=== PATIENT | female | born 1950 | race Caucasian/White ===

== ENCOUNTER 2018-01-28 08:23 | Inpatient (IN) ==
[~2018-01-28 08:23] MED LIST: Vancomycin 1,000 MG, Sodium Chloride IRRigation 1,000 ML IR ONE
[2018-01-28] MEDS ORDERED: *HR* FentaNYL (PF) 100 MCG/2 ML VIAL ONE ×2 (08:28→10:48)
[2018-01-28] MEDS ORDERED: *HR* Midazolam HCl 2 MG/2 ML VIAL ONE (08:28)
[2018-01-28] MEDS ORDERED: *HR* Propofol 200 MG/20 ML VIAL IVP ONE (08:28)
[2018-01-28] MEDS ORDERED: Lidocaine -MPF 2% 2 ML VIAL ONE (08:31)
[2018-01-28] MEDS ORDERED: *HR* Succinylcholine 200 MG/10 ML VIAL IVP ONE (08:31)
[2018-01-28] MEDS ORDERED: Lidocaine -MPF 1% 2 ML VIAL ID ONE (08:47)
[2018-01-28] MEDS ORDERED: CeFAZolin Syr 2,000MG/20 ML 2,000 MG/20 ML SYRINGE IVPB ONE (08:47)
[2018-01-28] MEDS ORDERED: Vancomycin 1,000 MG VIAL ONE (08:57)
[2018-01-28] MEDS ORDERED: Heparin 1,000 UNITS/500 mL 1,500 ML ONE (08:57)
--- NOTE | 2018-01-28 08:59 | Anesthesia Evaluation PreOp ---
Date of Encounter: 01/28/18 Time of Encounter: 08:58 - Past History Planned Operation: R femoral to popliteal artery bypass Cardiac History: Denies any Significant Hx, HTN, Hyperlipidemia, Other (PVD) Pulmonary History: Smoker [employer] History: Denies Any Significant HX Other Medical History: Renal (CKD stage 3), Thyroid Anesthesia History: No Prior Anesthetic Complications : No Alcohol Use: none Drug use: none Medications and Allergies 3 Allergy/AdvReac Type Severity Reaction Status Date / Time Penicillins Allergy See Verified 01/28/18 09:00 Comments - Meds/Allergy Pre-op Review Medications Reviewed: Yes Allergies Reviewed: Yes Beta Blockers on Current Med List: No Anesthesia Results - Labs Laboratory Tests 11/12/17 01/01/18 01/01/18 09:11 07:59 07:59 WBC Hgb Hct Plt Count PT 10.0 INR 0.9 APTT 32.7 Sodium 136 Potassium 4.5 Chloride 104 Carbon Dioxide 26 BUN 24 H Creatinine 1.31 H Est GFR (Non-Af Amer) 41 L Glucose 101 Hemoglobin A1c 6.0 H 01/01/18 07:59 WBC 10.0 Hgb 15.2 Hct 48.8 H Plt Count 336 PT INR APTT Sodium Potassium Chloride Carbon Dioxide BUN Creatinine Est GFR (Non-Af Amer) Glucose Hemoglobin A1c - Imaging EKG: report reviewed Additional studies: Stress test 01/2018 Impression: Pharmacologic stress ECG is negative for ischemia at level of heart rate achieved. Gated EF > 70%. Small sized, mild intensity, fixe inferior perfusion defect with normal wall motion. These findings are most consistent with artifact. Perfusion imaging negative for ischemia or prior infarct. Anesthesia Exam Vital Signs/O2 Sat, Most Current Temp Pulse Resp BP Pulse Ox 97.6 F 88 18 107/59 95 01/28/18 08:47 01/28/18 08:47 01/28/18 08:47 01/28/18 08:47 01/28/18 08:47 - HEENT Pupil (Motor): Pupils equal Mallampati: II Teeth: Normal Oral Opening: Greater than 3 - [employer] Motor: Normal RUE [employer] Sensory: Normal: RUE - Cardiac Rhythm: Regular Murmur: None - Pulmonary Breath Sounds: bilateral Clear Respiratory Effort: Symmetrical Anesthesia Assess/Plan ASA Score: 3 Modified Butler Scale for Level of Consciousness: Cooperative, oriented, and tranquil Anesthetic Plan: General Autologous Blood: No Monitoring Plan: Standard Monitors Recovery Plan: PACU Anes Supervising Prov Stmt: Discussed with patient and verified Rght side procedure to be done. Also discussed with surgeon to verify laterality of procedure.
[2018-01-28] MEDS ORDERED: 0.9 % Sodium Chloride 500 ML IVC SCH (09:00)
[2018-01-28] MEDS ORDERED: *HR* Promethazine 25 MG/ML VIAL IVP PRN (09:12)
[2018-01-28] MEDS ORDERED: Ondansetron 4 MG/2 ML VIAL IVP ONE (09:12)
[2018-01-28] MEDS ORDERED: Famotidine 20 MG/2 ML VIAL IVP ONE (09:12)
[2018-01-28] MEDS ORDERED: Acetaminophen IV 1,000 MG/100 ML INFUS..BTL IVPB ONE (09:12)
[2018-01-28] MEDS ORDERED: *HR* Meperidine 25 MG/ML SYRINGE IVP PRN (09:12)
[2018-01-28] MEDS ORDERED: *HR* HYDROmorphone (PF) 1 MG/ML SYRINGE IVP PRN (09:12)
--- NOTE | 2018-01-28 09:30 | History & Physical Report ---
Date of Encounter: 01/28/18 Time of Encounter: 09:10 24 Hour HP Update - Instructions Instructions: If the History and Physical is less than 30 days old and was completed prior to A.M. admission and or procedure and has NOT been updated on calendar day of procedure please complete this update prior to performing procedure. - Update Patient reports changes in Medical Condition: No Changes in examination, assessment, or condition: No Changes in Medication: No Preop tests/diagnostics Reviewed: Yes Surgery Remains Indicated: Yes Consent for Planned Operative Procedure(s) Verified: Yes - Pre-Operative Checklist Preoperative Checklist Indicated: Yes Prophylactic Antibiotic Ordered: Yes (Vancomycin due to MRSA risk) Home Medications Include Beta Elsa: No Beta Elsa Taken Today (Day of Surgery): No Beta Elsa Taken Yesterday (Day Prior to Surgery): No Is VTE Prophylaxis Indicated?: Yes
[2018-01-28] MEDS ORDERED: *HR* PHENYLEPHRINE 1,000 MCG/10 ML SYRINGE IVP ONE (10:27)
[2018-01-28] MEDS ORDERED: Ondansetron 4 MG/2 ML VIAL ONE (10:34)
[2018-01-28] MEDS ORDERED: Dexamethasone 4 MG/ML VIAL ONE (10:34)
[2018-01-28] MEDS ORDERED: *HR* Morphine 10 MG/ML VIAL ONE (10:54)
[2018-01-28] MEDS ORDERED: *HR* Heparin 5,000 UNIT/ML VIAL ONE ×2 (12:00→12:53)
[2018-01-28] MEDS ORDERED: Lacri-Lube 3.5 GM TUBE ONE (13:30)
--- NOTE | 2018-01-28 14:28 | Anesthesia Evaluation Post Op ---
Date of Encounter: 01/28/18 Time of Encounter: 14:25 - Vital Signs Vital Signs: Vital Signs/O2 Sat/Glucose, Most Current Temp Pulse Resp BP Pulse Ox 01/28/18 14:20 98.7 F 84 16 111/58 94 01/28/18 14:10 85 16 115/53 97 01/28/18 14:00 83 18 103/71 92 01/28/18 13:50 98.6 F 82 16 107/56 94 - Lungs Lungs: Clear Ascult./Percussion - Airway Airway: Non-obstructed - Cardiovascular Regular Rate - Mental Status Mental Status: Alert & Oriented, Answers Appropriately - Pain Pain Scale: 0 - Nausea Vomiting Nausea Vomiting: Not Present - Hydration Hydration: Ice chips - Discharge PostOp Status: Transfer Patient to floor
--- NOTE | 2018-01-28 14:32 | Operative Note ---
Date of procedure: 01/28/18 Pre-op diagnosis: Peripheral vascular disease with disabling claudication Post-op diagnosis: same Procedure: 1. Right superficial femoral artery to below-knee popliteal artery bypass with reversed right greater saphenous vein. 2. Right superficial femoral endarterectomy. Complications: None Surgeon: Flavio Saenz Was there an cement tester assistant present: No Estimated blood loss (cc): 50 Specimen: Right femoral plaque Condition: stable Disposition: PACU Procedure in Detail: Indications: The patient is a 67-year-old female with a history of hyperlipidemia, chronic kidney disease, tobacco abuse and hypertension. She presented to clinic with peripheral vascular disease with rest pain of the right lower extremity. She will an AngioJet and was found have a right distal superficial femoral through below-knee popliteal artery occlusion. Procedure: The patient was identified in the preoperative area. The risks, benefits, and alternatives of the procedure were discussed. All questions were answered. The patient was taken to the operating room and placed in supine position on the operating room table. After the induction of general endotracheal anesthesia, he was cleaned and draped in normal sterile fashion. A longitudinal incision was made over the right medial thigh sharply. Hemostasis was obtained with electrocautery. Through a process of blunt, sharp , and electrocautery dissection, the right distal superficial femoral artery and proximal popliteal artery were dissected circumferentially and surrounded with vessel loops. A longitudinal incision was made on the left medial calf sharply. Hemostasis was obtained with electrocautery. Through a process of blunt, sharp, and electrocautery dissection, the left below-knee popliteal artery was dissected proximally and distally and surrounded with vessel loops. The saphenous vein was identified within the incisions. The saphenous vein was completely mobilized with blunt, sharp, and electrocautery dissection. The side branches were clamped, divided, tied off with 3-0 and 4-0 silk sutures. Distally, the vein was mobilized in the calf, clamped, divided, tied off with silk suture ligature and then further completely mobilized through the incisions. The vein was flushed and noted to be adequate in size and consistency for bypass. A tunnel was created between the femoral and popliteal artery incisions. The vein was reversed. Tension was applied to the femoral vessel loops. An arteriotomy was made in the distal superficial femoral artery femoral artery. Significant dense calcified plaque was identified at the arteriotomy site. Using a dental freer and endarterectomy was performed at the level of the distal anastomosis on the superficial femoral artery. Endpoints were inspected and no elevated flaps were noted. The lumen was flushed with heparinized saline. The saphenous vein was reversed and then was cut to fit the defect. The graft was anastamosed with a running 6-0 Prolene. After completing the anastomosis, the vessels were reperfused and pulsatile flow was noted through the vein. The vein was marked without torsion and then it was tunneled between the two incisions. After tunneling, the vein was unclamped and was noted to have strong pulsatile flow once again. It was re-clamped. The popliteal vessels were occluded and a longitudinal arteriotomy was made in the popliteal artery. The distal end of the graft was sutured in place with a running 6-0 Prolene,. The distal arterial anastomosis was completed and prior to completing the closure, the popliteal vessels were flushed and reoccluded. Heparinized saline was infused into the lumen. The anastamosis was tied and then flow was restored. Polyphasic signals were noted distal to the distal anastomosis as well as at the posterior tibial and dorsalis pedis arteries. Wounds were irrigated with antibiotic-containing saline. Thrombin and gelfoam were used to aid in hemostasis. Platelet rich and platelet poor plasma were infused into the wounds. Meticulous hemostasis was obtained throughout the wound with electrocautery. Wounds were reapproximated with layers of 2-0 and 3-0 Vicryl. Skin was reapproximated with 3-0 Monocryl. Sterile dressing was applied. The patient was extubated and taken to recovery room in stable condition.
[2018-01-28] MEDS ORDERED: OXYCODONE Oral CONC 10 MG/0.5 ML ORAL.SYG SL PRN ×2 (15:40)
[2018-01-28] MEDS ORDERED: *HR* Labetalol 20 MG/4 ML SYRINGE IVP PRN (15:40)
[2018-01-28] MEDS ORDERED: NAPROXEN SODIUM PO PRN (15:40)
[2018-01-28] MEDS ORDERED: *HR* OxyCODONE Immed Rel 5 MG TABLET PO PRN (15:40)
[2018-01-28] MEDS ORDERED: Ondansetron 4 MG/2 ML VIAL IVP PRN (15:40)
[2018-01-28] MEDS ORDERED: 0.9 % Sodium Chloride 1,000 ML IVC SCH (15:40)
[2018-01-28] MEDS ORDERED: Naloxone 0.4 MG/ML INJ IVP PRN (15:40)
[2018-01-28] MEDS ORDERED: Acetaminophen 325 MG TABLET PO PRN (15:40)
[2018-01-28] MEDS ORDERED: P EPHED HCL PO PRN (15:40)
[2018-01-28] MEDS: *HR* Metoprolol 5 MG/5 ML VIAL IVP SCH ×2 (16:49→23:56)
[2018-01-28] MEDS: CeFAZolin Pre 2,000 MG/100 ML 2,000 MG/100 ML BAG IVPB SCH (17:11)
[2018-01-28] MEDS ORDERED: *HR* Heparin 5,000 UNIT/ML VIAL SQ SCH (18:00)
[2018-01-28] MEDS: *HR* HYDROcodone/Acet 5/325 mg TABLET PO PRN (21:01)
[2018-01-29] MEDS: CeFAZolin Pre 2,000 MG/100 ML 2,000 MG/100 ML BAG IVPB SCH (00:47)
[2018-01-29] MEDS: *HR* Metoprolol 5 MG/5 ML VIAL IVP SCH (05:38)
[2018-01-29 05:45] LABS: BUN/Creatinine Ratio 20 (6-26); Blood Urea Nitrogen 17 mg/dL (8-23); Calcium 8.8 mg/dL (8.6-10.3); Carbon Dioxide 23 mEq/L (23-29); Chloride 109 mEq/L (98-107); Glucose 111 mg/dL (70-105); Osmolality,Calculated 284 (280-300); Potassium 4.2 mEq/L (3.5-5.1); Sodium 136 mEq/L (136-145); eGFR For African Americans > 60 (> 60); eGFR For Non-African Americans > 60 (> 60)
[2018-01-29] MEDS ORDERED: *HR* Heparin 5,000 UNIT/ML VIAL SQ SCH (06:00)
--- NOTE | 2018-01-29 06:22 | Discharge Summary ---
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 She reports that her leg is feeling better. She is somewhat expected postoperative pain. Pain is well controlled with analgesics. She is ambulating. She will be discharged today. (2) Essential hypertension Priority: Secondary Status: Chronic Comments: She was counseled regarding atherosclerotic risk factor reduction. (3) Mixed hyperlipidemia Priority: Secondary Status: Chronic (4) Tobacco abuse Priority: Secondary Status: Chronic - Hospital Course Hospital course: Ms. Irby is a 67 year old female with hypertension, hyperlipidemia, tobacco abuse and peripheral vascular disease with rest pain. She is found have a right popliteal artery occlusion. She was admitted on 01/28/2018 patient underwent a right superficial femoral to popliteal artery bypass. She tolerated the procedure well. She was discharged home in stable condition on postoperative day #1 without competitions. Time spent discussing smoking cessation with patient: 3 to 10 minutes - Time Spent with Patient Total time spent providing and/or coordinating discharge services: - Discharge Medications Prescriptions: OxyCODONE/APAP 5/325 [Percocet 5/325 MG] 1 each PO Q6HR PRN 7 Days #25 tablet PRN Reason: Postoperative pain Home Medications: Aspirin [Lo-Dose Aspirin EC] 81 mg PO DAILY 01/28/18 [History] Cholecalciferol (D-3) [Vitamin D] 5,000 unit PO DAILY 01/28/18 [History] Levothyroxine Sodium 75 mcg PO DAILY 01/28/18 [History] Lisinopril [Zestril] 10 mg PO DAILY 01/28/18 [History] Loratadine [Claritin] 10 mg PO DAILY 01/28/18 [History] Naproxen Sodium/P-Ephed HCl [Aleve Sinus and Headache Cplt] 1 tab PO DAILY PRN 01/28/18 [History] PARoxetine HCl [Paroxetine HCl] 30 mg PO DAILY 01/28/18 [History] Pravastatin Sodium [Pravachol] 20 mg PO DAILY 01/28/18 [History] Vitamin B Complex [B Complex] 1 tab PO DAILY 01/28/18 [History] OxyCODONE/APAP 5/325 [Percocet 5/325 MG] 1 each PO Q6HR PRN 7 Days #25 tablet [Rx] Allergies/Adverse Reactions: 3 Allergy/AdvReac Type Severity Reaction Status Date / Time Penicillins Allergy See Verified 01/28/18 09:00 Comments Primary care physician: Mady Finch CNP Procedure(s) Performed: Femoral to popliteal artery bypass, right femoral endarterectomy. Discharging clinician: Flavio Saenz Anticipated date of discharge: 01/29/18 Exam Vital Signs, Last 4 Hours Temp Pulse Resp BP Pulse Ox 01/29/18 03:50 97.6 F 78 18 110/50 95 General: Present: Conversant, No Apparent Distress HEENT: Present: Pupils equal Cardiac: Present: Reg Rate and Rhythm Lungs: Present: Normal Breath Sounds Neuro: Present: Alert and responsive, No focal deficits noted Abdomen: Present: Soft, Non-tender Vascular: Present: Normal capillary refill, Pulse, normal, Surgical incisions ( Clean, dry, intact without erythema or drainage), Other ( compartments soft). Absent: Cyanosis, Edema Skin: Present: No rashes noted on visualized skin - Patient Status Disposition: Home, Self-Care Condition: Good Functional capacity at discharge: independent ambulation Overall status at discharge: patient is back to baseline - Discharge Instructions Instructions: Oxycodone/Acetaminophen (By mouth), Peripheral Vascular Disorders (DC) Follow Up With: Flavio Saenz MD [Partnered Physician] - 03/01/18 11:00 am Mady Finch CNP [Primary Care Provider] - 02/05/18 2:15 pm Additional Instructions: May remove bandage and shower on 01/30/2018. Wash wound gently and pat to dry. Applied dry gauze to wounds daily for 7 days. No tub baths or swimming for [address] Saenz at [phone] with questions or concerns. - Diet and Activity Activity: increase activity as tolerated Diet: advance to your usual diet - VTE Documentation of Mechanical Device: Intermittent pneumatic compression device
[2018-01-29 07:03] VITALS: BP 113/51
[2018-01-29] MEDS: *HR* HYDROcodone/Acet 5/325 mg TABLET PO PRN (08:17)
[2018-01-29] MEDS ORDERED: Loratadine 10 MG TABLET PO SCH (09:00)
[2018-01-29] MEDS ORDERED: Vitamin B Complex/Vit C/Vit E 1 EACH TABLET PO SCH (09:00)
[2018-01-29] MEDS ORDERED: Aspirin Enteric Coated 81 MG Tablet PO SCH (09:00)
[2018-01-29] MEDS ORDERED: Cholecalciferol (D-3) 1,000 UNIT TABLET PO SCH (09:00)
== END 2018-01-29 10:15 | disposition home or self-care (01) | DRG 254 ==
LOC: SAMDAY 08:23 → 2NNU 09:22
PROVIDERS: ADMIT Surgery; ATTEND Surgery